=== PATIENT | female | born 1950 | race Caucasian/White ===

== ENCOUNTER 2016-02-16 12:40 | Emergency (ER) | payer OTHER ==
[~2016-02-16] VITALS: Ht 157.5 cm; Wt 78.6 kg
[~2016-02-16 12:40] MED LIST: LEVO-T100 MCG PO; PROBIOTIC1 EAC1 PO; ULTRAM50 MG PO; VICODIN 5-3001 EACH PO; VITAMIN D2000 UNIT PO
[2016-02-16 13:22] LABS: ADD MIUA? YES; BILIRUBIN SMALL; BLOOD NEGATIVE; COLOR DK YELLOW ((YELLOW)); GLUCOSE (STRIP) NEGATIVE; KETONES 15; LEUKOCYTES SMALL; NITRITE NEGATIVE; PROTEIN (STRIP) TRACE; SPECIFIC GRAVITY 1.026 (1.000-1.030); UROBILINOGEN 0.2 MG/DL (0.2-1.0)
[2016-02-16 13:30] LABS: CHLORIDE 104 mEq/L (99-109); HEMATOCRIT 44.7 % (36.0-46.0); MCH 30.4 PG (29.0-34.0); MCHC 34.9 G/DL (30.0-36.0); PLATELET COUNT 247 K/uL (156-360); POTASSIUM 4.2 mEq/L (3.7-5.4); RBC DIS.WIDTH-CV 13.2 % (11.8-14.6); RBC DIS.WIDTH-SD 41.3 % (39-53); RED BLOOD COUNT 5.14 M/uL (3.80-5.20); SODIUM 141 mEq/L (136-147); WHITE BLOOD COUNT 9.6 K/uL (4.1-10.2)
[2016-02-16 13:32] LABS: GLUCOSE 140 mg/dL (70-99)
[2016-02-16 13:33] LABS: ANION GAP 12 MEQ/L (2-14)
[2016-02-16 13:34] LABS: TOTAL BILIRUBIN 1.8 mg/dL (0.0-1.0)
[2016-02-16 13:36] LABS: ALKALINE PHOSPHATASE 58 IU/L (3-129); GFR ESTIMATE (CALCULATED) 59 mL/min/
[2016-02-16 13:37] LABS: UREA NITROGEN (BUN) 17 mg/dL (9-23)
[2016-02-16 13:39] LABS: LIPASE 12 U/L (1.0-51.0)
[2016-02-16 14:10] LABS: BACTERIA 1+; CASTS NONE SEEN /LPF; CRYSTALS NONE SEEN; EPITHELIAL CELLS 2+; MUCUS NONE SEEN; RED BLOOD CELLS NONE SEEN /HPF (0-5); UCUL ADDED? NO
[2016-02-16] MEDS ORDERED: LEVOTHYROXINE88 MCG PO (15:41)
[2016-02-16] MEDS ORDERED: FLAGYL500 MG PO (17:18)
[2016-02-16] MEDS ORDERED: PERCOCET 5/31 TABLET PO (17:18)
[2016-02-16] MEDS ORDERED: CIPRO500 MG PO (17:18)
[2016-02-16] MEDS ORDERED: ZOFRAN ODT4 MG PO (17:18)
[2016-02-16 17:40] VITALS: BP 147/81
== END 2016-02-16 17:44 | disposition home or self-care (01) ==
LOC: EME 12:40 → RME 12:40
DX: K57.92 Diverticulitis of intestine, part unspecified, without perforation or abscess without bleeding (principal); Z87.891 Personal history of nicotine dependence
CPT/HCPCS: 74177; 80053; 81003; 83690; 85027; 99281; 99284; J7030

== ENCOUNTER 2016-02-24 12:55 | Observation (INO) | payer OTHER ==
[~2016-02-24] VITALS: Ht 157.5 cm; Wt 79.0 kg
[~2016-02-24 12:55] MED LIST changes: +CIPRO500 MG PO; +FLAGYL500 MG PO; +LEVOTHYROXINE88 MCG PO; +PERCOCET 5/31 TABLET PO; +ZOFRAN ODT4 MG PO
[2016-02-24 13:38] LABS: EOSINOPHIL (%) 1.6 % (0-5); EOSINOPHIL COUNT 0.1 K/uL (0-0.3); IMMATURE GRANULOCYTE (%) 0.7 % (0.0-0.7); IMMATURE GRANULOCYTE COUNT 0.5 K/uL; LYMPHOCYTE COUNT 1.5 K/uL (1.0-2.8); MCH 29.9 PG (29.0-34.0); MCHC 35.2 G/DL (30.0-36.0); MCV 84.8 FL (83-99); MEAN PLAT.VOLUME 9.6 uM^3 (9.5-12.4); MONOCYTE (%) 7.7 % (3-12); MONOCYTE COUNT 0.6 K/uL (0-0.8); NEUTROPHIL (%) 69.3 % (45-76); NEUTROPHIL COUNT 5.3 K/uL (1.8-6.4); PLATELET COUNT 236 K/uL (156-360); RBC DIS.WIDTH-CV 13.5 % (11.8-14.6); RBC DIS.WIDTH-SD 41.4 % (39-53); RED BLOOD COUNT 4.95 M/uL (3.80-5.20); WHITE BLOOD COUNT 7.6 K/uL (4.1-10.2)
[2016-02-24 13:53] LABS: CHLORIDE 106 mEq/L (99-109); POTASSIUM 3.6 mEq/L (3.7-5.4); SODIUM 140 mEq/L (136-147)
[2016-02-24 13:54] LABS: D-DIMER ELISA 0.29 mg/L FEU (< 0.57); INTER. NORMALIZED RATIO 1.1; PTT 27.2 (25-32)
[2016-02-24 13:55] LABS: GLUCOSE 108 mg/dL (70-99)
[2016-02-24 13:56] LABS: ANION GAP 10 MEQ/L (2-14)
[2016-02-24 13:59] LABS: GFR ESTIMATE (CALCULATED) > 59 mL/min/
[2016-02-24 14:00] LABS: UREA NITROGEN (BUN) 9 mg/dL (9-23)
[2016-02-24 14:08] LABS: TROP-I INTERPRETATION NEGATIVE; TROPONIN-I < 0.01 ng/mL (0.0-0.30)
[2016-02-24] MEDS ORDERED: AUGMENTIN875 MG PO (16:17)
[2016-02-24] MEDS ORDERED: PROZAC20 MG PO (16:17)
[2016-02-24 18:42] LABS: TROP-I INTERPRETATION NEGATIVE; TROPONIN-I < 0.01 ng/mL (0.0-0.30)
[2016-02-24 20:17] VITALS: BP 142/79
[2016-02-25 01:00] LABS: TROP-I INTERPRETATION NEGATIVE; TROPONIN-I < 0.01 ng/mL (0.0-0.30)
[2016-02-25 01:15] VITALS: BP 123/75
[2016-02-25 04:26] VITALS: BP 130/74
[2016-02-25 06:20] LABS: HDL CHOLESTEROL 38 MG/DL (Desirable>=50); LDL CHOLESTEROL 77 mg/dL (Desirable<100); NON-HDL CHOLESTEROL 95 mg/dL (Desirable<160); TOTAL CHOLESTEROL 133 mg/dL (Desirable<200); TRIGLYCERIDES 88 MG/DL (Normal: <150)
[2016-02-25 08:00] VITALS: BP 136/69
[2016-02-25] MEDS ORDERED: ASPIR-LOW81 MG PO (09:32)
== END 2016-02-25 11:05 | disposition home or self-care (01) ==
LOC: EME 12:55 → EDOF 16:37 → 5WEST 16:37 → EDOF 16:37 → 5WEST 19:45
PROVIDERS: Emergency Medicine; Hospitalist
DX: R07.9 Chest pain, unspecified (principal); R00.2 Palpitations; E03.9 Hypothyroidism, unspecified; F41.9 Anxiety disorder, unspecified; K57.92 Diverticulitis of intestine, part unspecified, without perforation or abscess without bleeding; Z87.891 Personal history of nicotine dependence; Z82.49 Family history of ischemic heart disease and other diseases of the circulatory system
CPT/HCPCS: 71010; 80048; 80061; 84443; 84484; 85025; 85379; 85610; 85730; 93005; 99281; 99285; G0378; J7030; S0028

== ENCOUNTER 2016-03-12 10:46 | Emergency (ER) | payer OTHER ==
[~2016-03-12] VITALS: Ht 157.5 cm; Wt 75.8 kg
[~2016-03-12 10:46] MED LIST changes: +ASPIR-LOW81 MG PO; +AUGMENTIN875 MG PO; +PROZAC20 MG PO
[2016-03-12 13:32] LABS: HEMATOCRIT 45.2 % (36.0-46.0); MCH 29.7 PG (29.0-34.0); MCHC 34.1 G/DL (30.0-36.0); MCV 87.3 FL (83-99); MEAN PLAT.VOLUME 10.1 uM^3 (9.5-12.4); PLATELET COUNT 218 K/uL (156-360); RBC DIS.WIDTH-CV 13.6 % (11.8-14.6); RBC DIS.WIDTH-SD 43.3 % (39-53); RED BLOOD COUNT 5.18 M/uL (3.80-5.20); WHITE BLOOD COUNT 11.2 K/uL (4.1-10.2)
[2016-03-12 13:41] LABS: CHLORIDE 104 mEq/L (99-109); POTASSIUM 4.6 mEq/L (3.7-5.4); SODIUM 140 mEq/L (136-147)
[2016-03-12 13:43] LABS: GLUCOSE 126 mg/dL (70-99)
[2016-03-12 13:44] LABS: ANION GAP 12 MEQ/L (2-14)
[2016-03-12 13:45] LABS: TOTAL BILIRUBIN 2.5 mg/dL (0.0-1.0)
[2016-03-12 13:46] LABS: ALKALINE PHOSPHATASE 63 IU/L (3-129)
[2016-03-12 13:47] LABS: GFR ESTIMATE (CALCULATED) > 59 mL/min/
[2016-03-12 13:48] LABS: UREA NITROGEN (BUN) 11 mg/dL (9-23)
[2016-03-12 14:09] LABS: ADD MIUA? YES; BILIRUBIN NEGATIVE; BLOOD TRACE; COLOR YELLOW ((YELLOW)); GLUCOSE (STRIP) NEGATIVE; KETONES 15; LEUKOCYTES NEGATIVE; NITRITE NEGATIVE; PROTEIN (STRIP) NEGATIVE; SPECIFIC GRAVITY 1.015 (1.000-1.030); UROBILINOGEN 0.2 MG/DL (0.2-1.0)
[2016-03-12 14:22] LABS: BACTERIA NONE SEEN; CASTS NONE SEEN /LPF; EPITHELIAL CELLS RARE; MUCUS NONE SEEN; PATHOLOGICAL CAST NONE SEEN; RED BLOOD CELLS 0-5 /HPF (0-5); SMALL ROUND CELL NONE SEEN; UCUL ADDED? NO; WHITE BLOOD CELLS 0-5 /HPF (0-5); YEAST-LIKE CELL NONE SEEN
[2016-03-12 14:33] LABS: CRYSTALS NONE SEEN
[2016-03-12] MEDS ORDERED: TYLENOL WITH C1 EACH PO (14:39)
[2016-03-12] MEDS ORDERED: CIPRO500 MG PO (14:39)
[2016-03-12] MEDS ORDERED: FLAGYL500 MG PO (14:39)
[2016-03-12 15:00] VITALS: BP 116/59
== END 2016-03-12 15:03 | disposition home or self-care (01) ==
LOC: EME 10:46
DX: K57.32 Diverticulitis of large intestine without perforation or abscess without bleeding (principal); Z87.891 Personal history of nicotine dependence
CPT/HCPCS: 74176; 80053; 81003; 85027; 99281; 99285; J2270; J2405; J7030

== ENCOUNTER 2016-07-27 05:25 | Day surgery (SDC) | payer OTHER ==
[~2016-07-27] VITALS: Ht 157.5 cm; Wt 74.0 kg
[~2016-07-27 05:25] MED LIST changes: +BIOTIN1000 MCG PO; +LEVO-T88 MCG PO; +PROBIOTIC1 EAC3 PO; +TYLENOL WITH C1 EACH PO
[2016-07-27] MEDS ORDERED: TYLENOL WITH C1 EACH PO (05:50)
[2016-07-27 05:54] VITALS: BP 140/73
[2016-07-27] MEDS ORDERED: NORCO 5/3251 TABLET PO (09:37)
[2016-07-27 11:26] VITALS: BP 109/61
[2016-07-27 12:20] VITALS: BP 116/59
[2016-07-27 14:10] VITALS: BP 107/55
== END 2016-07-27 14:05 | disposition home or self-care (01) ==
LOC: SDC 05:25
PROC: 0WUF4JZ Supplement Abdominal Wall with Synthetic Substitute, Percutaneous Endoscopic Approach (ICD-10-PCS; principal; 2016-07-27)
DX: K43.6 Other and unspecified ventral hernia with obstruction, without gangrene (principal); K43.9 Ventral hernia without obstruction or gangrene; K42.0 Umbilical hernia with obstruction, without gangrene; K57.30 Diverticulosis of large intestine without perforation or abscess without bleeding; Z83.3 Family history of diabetes mellitus; E03.9 Hypothyroidism, unspecified; Z87.891 Personal history of nicotine dependence
CPT/HCPCS: C1781; J0330; J0690; J1100; J1170; J2405; J2710; J3010

== ENCOUNTER 2017-06-09 14:21 | Emergency (ER) | payer OTHER ==
[~2017-06-09] VITALS: Ht 157.5 cm; Wt 78.1 kg
[~2017-06-09 14:21] MED LIST changes: +NORCO 5/3251 TABLET PO
[2017-06-09 14:50] VITALS: BP 145/98
[2017-06-09 15:13] LABS: MCH 31.1 PG (29.0-34.0); MCHC 34.9 G/DL (30.0-36.0); MCV 89.2 FL (83-99); PLATELET COUNT 198 K/uL (156-360); RBC DIS.WIDTH-CV 12.8 % (11.8-14.6); RED BLOOD COUNT 4.82 M/uL (3.80-5.20); WHITE BLOOD COUNT 8.3 K/uL (4.1-10.2)
[2017-06-09 15:33] LABS: TROP-I INTERPRETATION NEGATIVE; TROPONIN-I < 0.01 ng/mL (0.0-0.30)
[2017-06-09 15:39] LABS: CHLORIDE 106 MEQ/L (99-109); POTASSIUM 4.3 MEQ/L (3.7-5.4); SODIUM 142 MEQ/L (136-147)
[2017-06-09 15:44] LABS: CREATININE 0.8 MG/DL (0.6-1.3); GFR ESTIMATE (CALCULATED) > 59 mL/min/; GLUCOSE 101 mg/dL (70-99); UREA NITROGEN (BUN) 12 mg/dL (9-23)
== END 2017-06-09 16:30 | disposition left against medical advice (07) ==
LOC: EME 14:21
DX: R00.2 Palpitations (principal); Z53.21 Procedure and treatment not carried out due to patient leaving prior to being seen by health care provider
CPT/HCPCS: 71046; 80048; 84484; 85027; 93005

== ENCOUNTER 2017-09-08 19:36 | Emergency (ER) | payer OTHER ==
[~2017-09-08] VITALS: Ht 154.9 cm; Wt 80.0 kg
[2017-09-08 20:38] LABS: HEMATOCRIT 43.7 % (36.0-46.0); HEMOGLOBIN 15.2 G/DL (11.9-15.5); MCH 30.5 PG (29.0-34.0); MCHC 34.8 G/DL (30.0-36.0); MCV 87.8 FL (83-99); PLATELET COUNT 220 K/uL (156-360); RBC DIS.WIDTH-SD 42.1 % (39-53); RED BLOOD COUNT 4.98 M/uL (3.80-5.20); WHITE BLOOD COUNT 10.4 K/uL (4.1-10.2)
[2017-09-08 20:57] LABS: CHLORIDE 102 mEq/L (99-109); POTASSIUM 4.5 mEq/L (3.7-5.4); SODIUM 142 mEq/L (136-147)
[2017-09-08 20:59] LABS: GLUCOSE 105 mg/dL (70-99)
[2017-09-08 21:02] LABS: CREATININE 0.9 mg/dL (0.6-1.3); GFR ESTIMATE (CALCULATED) > 59 mL/min/
[2017-09-08 21:03] LABS: UREA NITROGEN (BUN) 15 mg/dL (9-23)
[2017-09-08 21:06] LABS: TROP-I INTERPRETATION NEGATIVE; TROPONIN-I < 0.01 ng/mL (0.0-0.30)
[2017-09-09] MEDS ORDERED: TYLENOL WITH C1 EACH PO (00:58)
[2017-09-09] MEDS ORDERED: FLAGYL500 MG PO (00:58)
[2017-09-09] MEDS ORDERED: CIPRO500 MG PO (00:58)
[2017-09-09 02:17] VITALS: BP 138/84
== END 2017-09-09 02:21 | disposition home or self-care (01) ==
LOC: EME 19:36
DX: K57.32 Diverticulitis of large intestine without perforation or abscess without bleeding (principal); R07.89 Other chest pain; I49.8 Other specified cardiac arrhythmias; Z87.891 Personal history of nicotine dependence
CPT/HCPCS: 71046; 74177; 80048; 84484; 85027; 93005; 99281; 99285; J7030